=== PATIENT | female | born 1950 | race African-American/Black ===

== ENCOUNTER 2024-01-13 09:09 | Emergency (ER) | payer MEDICARE, OTHER ==
[~2024-01-13] VITALS: Ht 162.6 cm; Wt 86.0 kg
[2024-01-13 09:15] VITALS: O2SAT 100
[2024-01-13] MEDS ORDERED: NIRM1TAB8 PO (11:28)
[2024-01-13 11:50] VITALS: BP 135/91; PULSE 90; RESP 18; TEMP 97.8
== END 2024-01-13 12:18 | disposition home or self-care (01) ==
LOC: ER 09:09
DX: U07.1 COVID-19 (principal); E78.00 Pure hypercholesterolemia, unspecified; I10 Essential (primary) hypertension
CPT/HCPCS: 71045; 87426; 87804; 99284

== ENCOUNTER 2024-01-15 17:25 | Emergency (ER) | payer OTHER ==
[~2024-01-15] VITALS: Ht 162.6 cm; Wt 81.0 kg
[~2024-01-15 17:25] MED LIST: NIRM1TAB8 PO
[2024-01-15 17:32] VITALS: BP 144/75; PULSE 100; RESP 18; TEMP 99; O2SAT 100
== END 2024-01-15 18:43 | disposition home or self-care (01) ==
LOC: ER 17:25
DX: Z00.00 Encounter for general adult medical examination without abnormal findings (principal); I10 Essential (primary) hypertension; E78.00 Pure hypercholesterolemia, unspecified
CPT/HCPCS: 99281